=== PATIENT | female | born 1945 | race Caucasian/White ===

== ENCOUNTER → 2017-02-12 | Outpatient (CLI) | payer OTHER, BC | LOC: BMCIMAGING 11:27 | PROVIDERS: ATTEND Internal Medicine | DX: M17.12 Unilateral primary osteoarthritis, left knee (principal); M79.662 Pain in left lower leg ==

== ENCOUNTER → 2017-12-02 | Outpatient (CLI) | payer OTHER, BC ==
[~2017-12-02] MED LIST: GADOBUTROL 10 ML VIAL IVP ONE
== END ==
LOC: FIMAGING 12:57
DX: R41.3 Other amnesia (principal)
CPT/HCPCS: 70553; A9585